=== PATIENT | female | born 1960 | race Caucasian/White ===

== ENCOUNTER 2018-05-31 15:17 | Outpatient (CLI) | payer OTHER | END 2018-05-31 15:18 | disposition home or self-care (01) | LOC: SC 15:17 | PROVIDERS: ATTEND Internal Medicine Pulmonary Disease | DX: G47.30 Sleep apnea, unspecified (principal); G47.10 Hypersomnia, unspecified; R06.83 Snoring; G47.8 Other sleep disorders | CPT/HCPCS: 99203; 99212 ==

== ENCOUNTER 2018-06-20 16:00 | Outpatient (CLI) | payer OTHER ==
--- NOTE | 2018-06-21 09:52 | Mammography Report ---
Procedure Date: 06/20/2018 Accession Number: [id number] / [id number] Procedure: MGN - Screening Mammo Dig Bilat CPT Code: FULL RESULT: EXAM: Screening Mammo Dig Bilat DATE: 06/20/2018 4:18 PM CLINICAL HISTORY: Late childbearing for routine screening TECHNIQUE: Bilateral CC and MLO views were obtained. COMPARISON: 10/10/2015, 06/03/2012, 06/11/2009 FINDINGS: There are scattered fibroglandular densities. There has been no significant interval change. No suspicious masses, clustered microcalcifications, or regions of architectural distortion are identified. IMPRESSION: Negative examination RECOMMENDATION: Routine annual screening unless otherwise clinically indicated. BIRADS CATEGORY 1: Negative STANDARD QUALIFYING STATEMENTS: 1. This examination was reviewed with the aid of Computer-Aided Detection (CAD). 2. A negative or benign imaging report should not delay biopsy if clinically suspicious findings are present. Consider surgical consultation if warrented. More than 5% of cancers are not identified by imaging. 3. Dense breasts may obscure an underlying neoplasm.
== END 2018-06-20 16:01 | disposition home or self-care (01) ==
LOC: DI.N 16:00
PROVIDERS: ATTEND Physician Assistant
DX: Z12.31 Encounter for screening mammogram for malignant neoplasm of breast (principal)
CPT/HCPCS: 77067

== ENCOUNTER 2018-07-06 20:22 | Outpatient (CLI) | payer OTHER | END 2018-07-06 20:23 | disposition home or self-care (01) | LOC: SC 20:22 | PROVIDERS: ATTEND Internal Medicine Pulmonary Disease | DX: G47.33 Obstructive sleep apnea (adult) (pediatric) (principal); G47.61 Periodic limb movement disorder | CPT/HCPCS: 95811 ==

== ENCOUNTER 2018-07-11 14:50 | Outpatient (CLI) | payer OTHER | END 2018-07-11 14:51 | disposition home or self-care (01) | LOC: SC 14:50 | PROVIDERS: ATTEND Internal Medicine Pulmonary Disease | DX: G47.33 Obstructive sleep apnea (adult) (pediatric) (principal) | CPT/HCPCS: 99212; 99213 ==

== ENCOUNTER 2018-09-08 13:15 | Outpatient (CLI) | payer OTHER | END 2018-09-08 13:16 | disposition home or self-care (01) | LOC: SC 13:15 | PROVIDERS: ATTEND Nurse Practitioner Family | DX: G47.33 Obstructive sleep apnea (adult) (pediatric) (principal) | CPT/HCPCS: 99212; 99215 ==

== ENCOUNTER 2018-10-12 13:38 | Outpatient (CLI) | payer OTHER | END 2018-10-12 13:39 | disposition home or self-care (01) | LOC: SC 13:38 | PROVIDERS: ATTEND Nurse Practitioner Family | DX: G47.33 Obstructive sleep apnea (adult) (pediatric) (principal) | CPT/HCPCS: 99212; 99214 ==

== ENCOUNTER 2018-11-17 13:38 | Outpatient (CLI) | payer OTHER | END 2018-11-17 13:39 | disposition home or self-care (01) | LOC: SC 13:38 | PROVIDERS: ATTEND Nurse Practitioner Family | DX: G47.33 Obstructive sleep apnea (adult) (pediatric) (principal) | CPT/HCPCS: 99212; 99214 ==

== ENCOUNTER 2018-11-21 13:47 | Outpatient (CLI) | payer OTHER ==
[2018-11-21] MEDS ORDERED: IOVERSOL 320 50 ML VIAL ONE (13:53)
[2018-11-21] MEDS ORDERED: IOVERSOL 320 100 ML VIAL IVP ONE ×2 (13:53→15:22)
[2018-11-21] MEDS ORDERED: IOVERSOL 320 50 ML VIAL PO ONE (15:22)
--- NOTE | 2018-11-21 16:52 | CT Report ---
Reason: OTHER CHEST PAIN,ABDOMINAL DISTENSION Procedure Date: 11/21/2018 Accession Number: [id number] / [id number] Procedure: CT - Abdomen/Pelvis W/ CPT Code: FULL RESULT: EXAM: CT ABDOMEN AND PELVIS EXAM DATE: 11/21/2018 03:17 PM. CLINICAL HISTORY: OTHER CHEST PAIN,ABDOMINAL DISTENSION. COMPARISONS: None. TECHNIQUE: Routine helical CT imaging was performed through the abdomen and pelvis. IV contrast: 100 mL Optiray 320. Enteric contrast: Yes. Reconstructions: Coronal and sagittal. In accordance with CT protocol optimization, one or more of the following dose reduction techniques were utilized for this exam: automated exposure control, adjustment of mA and/or KV based on patient size, or use of iterative reconstructive technique. FINDINGS: Lung Bases: Unremarkable. Liver: Normal. No masses. Gallbladder/Bile Ducts: Unremarkable. Spleen: Normal. Pancreas: Normal. Adrenal Glands: Normal. Kidneys: Normal. No masses or hydronephrosis. Peritoneal Cavity/Bowel: Small hiatal hernia. Postsurgical changes at the GE junction. The appendix is well visualized and normal. Pelvic Organs: Normal. The bladder and visualized pelvic organs are within normal limits. Vasculature: No aneurysms or other significant abnormality. Bones: No significant abnormality. Other: None. IMPRESSION: 1. Prior Eder fundoplication with small hiatal hernia and the fundoplication above the diaphragm. 2. Otherwise, no bowel obstruction or inflammatory process associated with the bowel. No free air or fluid in the abdomen or pelvis. 3. The appendix images normally. RADIA
--- NOTE | 2018-11-22 11:58 | CT Report ---
Reason: OTHER CHEST PAIN,ABDOMINAL DISTENSION Procedure Date: 11/21/2018 Accession Number: [id number] / [id number] Procedure: CT - Chest W/ CPT Code: FULL RESULT: EXAM: CT CHEST EXAM DATE: 11/21/2018 03:17 PM. CLINICAL HISTORY: Other chest pain, abdominal distension. COMPARISONS: None. TECHNIQUE: Routine helical CT imaging was performed through the chest. IV contrast: 100 mL Optiray 320. Reconstructions: Coronal and sagittal. In accordance with CT protocol optimization, one or more of the following dose reduction techniques were utilized for this exam: automated exposure control, adjustment of mA and/or KV based on patient size, or use of iterative reconstructive technique. FINDINGS: Lungs/Pleura: Minimal dependent changes predominantly on the left. No suspicious nodules, bronchial thickening, consolidation, or edema. Pulmonary vasculature is normal. No pericardial or pleural effusion. No pneumothorax. Mediastinum: Normal. No adenopathy or masses. The heart and great vessels are normal. Bones: No aggressive osseous lesions. Visualized Abdomen: See CT abdomen pelvis. Other: The Eder fundoplication within the thorax contains oral contrast and there is a sliding hiatal hernia, no longer effective. IMPRESSION: Hiatal hernia with failed fundoplication repair. RADIA
== END 2018-11-21 13:48 | disposition home or self-care (01) ==
LOC: DI 13:47
PROVIDERS: ATTEND Physician Assistant
DX: K44.9 Diaphragmatic hernia without obstruction or gangrene (principal); Z98.84 Bariatric surgery status
CPT/HCPCS: 71260; 74177; Q9967

== ENCOUNTER 2019-01-11 13:03 | Outpatient (CLI) | payer OTHER ==
--- NOTE | 2019-01-19 14:08 | XRAY Report ---
Reason: DYSPHAGIA, UNSPECIFIED Procedure Date: 01/11/2019 Accession Number: [id number] / [id number] Procedure: FL - Modified Barium Swallow W/SP CPT Code: FULL RESULT: EXAM: MODIFIED BARIUM SWALLOW EXAM DATE: 01/11/2019 01:39 PM. CLINICAL HISTORY: Dysphagia, unspecified. COMPARISON: None. TECHNIQUE: Under the direction of speech pathology, patient swallowed various consistencies of barium under lateral fluoroscopic observation of the neck. Fluoroscopy Time: 1 minute 16 seconds. Number of Images: 60. FINDINGS: Swallowing Mechanism: Normal oral phase and swallowing reflex. Airway Protection: Normal epiglottic motion. No episodes of tracheal penetration or aspiration with all consistencies of barium. Pharynx: Normal. No significant vallecular or piriform sinus contrast pooling. Other: None. IMPRESSION: Normal modified barium swallow. No aspiration identified. RADIA
== END 2019-01-11 13:04 | disposition home or self-care (01) ==
LOC: DI 13:03
PROVIDERS: ATTEND Surgery
DX: R13.10 Dysphagia, unspecified (principal)
CPT/HCPCS: 74230

== ENCOUNTER 2019-02-15 13:34 | Outpatient (CLI) | payer OTHER | END 2019-02-15 13:35 | disposition home or self-care (01) | LOC: SC 13:34 | PROVIDERS: ATTEND Nurse Practitioner Family | DX: G47.33 Obstructive sleep apnea (adult) (pediatric) (principal); R60.0 Localized edema | CPT/HCPCS: 99212; 99215 ==

== ENCOUNTER 2019-10-05 11:07 | Outpatient (CLI) | payer OTHER ==
[2019-10-05 12:29] VITALS: BP 118/78
--- NOTE | 2019-10-05 12:29 | SLEEP CARE CONSULTATION ---
Information from patient questionnaire entered by Rosie Allred. I have reviewed and concur with the information entered by Rosie Allred. This document represents the service I personally performed and the decisions made by me, Narcisa Camarena, RN, MSN, INSTRUMENT STERILIZER. History of Present Illness Previous diagnosis: Very Severe, Obstructive Sleep Apnea-Hypopnea Syndrome AHI: 98.2 Reason for follow up: six month Equipment type: BiPAP Equipment obtained from: [employer] Mask style: Nasal pillows Mask brand: Respironics (wears headgear upside down and stays in place better) Backup mask available: Yes Last cushion change: 2 weeks Prior sleep studies: Yes HPI additional information: Since last seen her extremity edema resolved with 20 pound weight loss. The bloating is also better and only intermittent and seen by GI for future surgical repair of failed fundo plication. CPAP Compliance Data - Data Reviewed with Patient Average duration of nightly device use: 5h 51m Compliance rate %: 79 Current pressure setting (cmH2O): 14/10 Average residual AHI: 5.9 Central apnea: 1.7 Obstructive apnea: 3.7 Hypopnea: 0.3 Subjective Patient concerns: reports: aerophagia (bloating in morning less since weight loss with resolution from flatus a couple hours later / denies chest pressure and burping ), other (waking with mask off of face the last 2 months with recent change / also able to sleep on back with weight loss). denies: mask discomfort, air blowing in eyes, mask leak noise, condensation in mask/hose, nasal congestion, dry mouth, nose, throat, epistaxis Observed to snore while using device: No (noted by family during travel ) Current pressure setting perceived as: comfortable On therapy, patient: reports: sleeping better (but recently waking more in night the past 2 months with weight loss), awakening more refreshed, being more awake and alert during the day, more rested overall. denies: drowsiness while driving Initial [place] Sleepiness Scale score: 8 Current [place] Sleepiness Scale score: 4 Allergies and Home Medications Known drug allergies: Yes (Bees and latex) Home medication list reviewed: Yes Allergy and home medication list: Medication Name (generic/name brand) Strength & Dosage Fswwmqsakv-Dlgjmelacvtfy-Ypqgdfpx 50-300-40mg two every 4hr prn migraine Estradiol 1mg tab one daily Fluoxetine HCI 20mg tab one daily Valacyclovir 500mg tab one daily prn Multivitamin Tab one daily Review of Systems Review of systems same as previous: Yes Physical Exam Blood Pressure: 118/78 Cuff size: long Heart Rate: 67 O2 Saturation: 98 Height: 5 ft 5.75 in Weight: 210 lb 12.8 oz (started weight watchers and goal of losing to 150 pounds ) Weight change since last visit: lost 37 pounds Body Mass Index: 34.2 BMI Classification: Obesity Class 1 Impression and Plan 1. Obstructive Sleep Apnea-Hypopnea Syndrome, extremely severe, with good treatment compliance and slightly elevated residual AHI that is similar to past visit. However, now she can sleep supine with her BiPAP due to resolution of s houlder and side pain and numbness with weight loss. On BiPAP therapy, the patient has better sleep quality and is more rested overall. Her headaches and nightmares have resolved. However, she is waking more frequently since weight loss and finding mask off of face. Thus we discussed how her weight loss can reduce her apnea risk as well as her CPAP pressure requirements with rationale discussed. So I will reduce her BiPAP pressure to 12/8cmH20 and patient to contact me if the pressure uncomfortable or if she continues to pull mask off. Hopefully this pressure reduction will also reduce her abdominal bloating .Other symptoms to report for further pressure reduction discussed as well as patient plans on losing 50 more pounds. She was praised for her accomplishment. Patient pleased with how much better she is feeling overall with weight loss. Patient's apnea severity and rationale for treatment to reduce apnea, improve sleep quality and reduce cardiovascular and cerebrovascular events was reviewed. I also reviewed the benefit of consistent device use of BiPAP for migraines. * * Change BiPAP pressure to 12/8 cmH2O * Notify me if snoring with mask or feeling that the pressure is too much or too little * Continue to lose weight * Return for follow up in 6 months , or sooner if concerns arise I spent 100% of this [20][30] minute visit face to face with the patient with greater than 50% of this was spent time counseling the patient and coordination of care.
== END 2019-10-05 11:08 | disposition home or self-care (01) ==
LOC: SC 11:07
PROVIDERS: ATTEND Nurse Practitioner Family
DX: G47.33 Obstructive sleep apnea (adult) (pediatric) (principal); E66.9 Obesity, unspecified; Z68.34 Body mass index [BMI] 34.0-34.9, adult
CPT/HCPCS: 99212; 99214

== ENCOUNTER 2021-04-11 08:08 | Outpatient (CLI) | payer BC ==
--- NOTE | 2021-04-14 11:45 | Mammography Report ---
BILATERAL DIGITAL SCREENING MAMMOGRAM 3D/2D: 04/11/2021 CLINICAL: Routine screening. Comparison is made to exams dated: 06/20/2018 mammogram, 10/10/2015 mammogram, and 06/03/2012 mammogram - [facility]. The tissue of both breasts is predominantly fatty. No significant masses, calcifications, or other findings are seen in either breast. There has been no significant interval change. IMPRESSION: NEGATIVE There is no mammographic evidence of malignancy. A 1 year screening mammogram is recommended. This exam was interpreted at Station ID: [id number]. NOTE: For mammograms, a report in lay terms will be sent to the patient. Approximately 15% of breast malignancies will not be visualized mammographically. In the management of a palpable breast mass, a negative mammogram must not discourage biopsy of a clinically suspicious lesion. Electronically Signed By: Russ Mariscal M.D. aty/penrad:04/11/2021 10:30:41 ACR BI-RADS Category 1: Negative 3341F PARENCHYMAL PATTERN: (F) - The breast(s) demonstrate(s) diffuse fatty replacement. BI-RADS CATEGORY: (1) - 1 RECOMMENDATION: (ANNUAL) - Recommend routine annual screening mammography. [id number] 1 year screening LATERALITY: (B)
== END 2021-04-11 08:09 | disposition home or self-care (01) ==
LOC: DI 08:08
DX: Z12.31 Encounter for screening mammogram for malignant neoplasm of breast (principal)

== ENCOUNTER 2022-05-12 14:57 | Outpatient (CLI) | payer BC ==
--- NOTE | 2022-05-14 12:29 | Mammography Report ---
BILATERAL DIGITAL SCREENING MAMMOGRAM 3D/2D: 05/12/2022 CLINICAL: Family history of breast cancer. Routine screening. No prior exams were available for comparison. The tissue of both breasts is predominantly fatty. There is a stable benign focal asymmetry in the left breast. No significant masses, calcifications, or other findings are seen in either breast. IMPRESSION: BENIGN There is no mammographic evidence of malignancy. A 1 year screening mammogram is recommended. Based on the Tyrer Cuzick model (a risk assessment model) the patients lifetime risk is 10.5% and he r 10 year risk is 4.6%. According to the ACR, ACS, and NCCN guidelines, an annual breast MRI exam nilson ng with mammogram is recommended if the patients lifetime risk is 20% or greater. This exam was interpreted at Station ID: [id number]. NOTE: For mammograms, a report in lay terms will be sent to the patient. Approximately 15% of breast malignancies will not be visualized mammographically. In the management of a palpable breast mass, a negative mammogram must not discourage biopsy of a clinically suspicious lesion. Electronically Signed By: John Weems acr/penrad:05/13/2022 14:05:00 ACR BI-RADS Category 2: Benign Finding(s) 3342F PARENCHYMAL PATTERN: (F) - The breast(s) demonstrate(s) diffuse fatty replacement. BI-RADS CATEGORY: (2) - 2 RECOMMENDATION: (ANNUAL) - Recommend routine annual screening mammography. [id number] 1 year screening LATERALITY: (B)
== END 2022-05-12 14:58 | disposition home or self-care (01) ==
LOC: DI.S 14:57
PROVIDERS: ATTEND Registered Nurse
DX: Z12.31 Encounter for screening mammogram for malignant neoplasm of breast (principal); Z80.3 Family history of malignant neoplasm of breast

== ENCOUNTER 2022-05-12 14:59 | Outpatient (CLI) | payer BC ==
--- NOTE | 2022-05-12 15:59 | XRAY Report ---
PROCEDURE: Knee 3 View RT INDICATIONS: RIGHT KNEE PAIN TECHNIQUE: 3 views of the right knee(s) were acquired. COMPARISON: None. FINDINGS: Bones: Mild degenerative changes with small forming osteophytes of the medial and lateral compartmen t. No joint space narrowing. No fractures or dislocations. No suspicious bony lesions. Soft tissues: No joint effusion. No suspicious soft tissue calcifications. Vasculature has atheros clerotic calcifications. IMPRESSION: Mild degenerative changes. No acute abnormality. Reviewed by: John Weems on 05/12/2022 3:57 PM PDT Approved by: John Weems on 05/12/2022 3:57 PM PDT Station ID: [id number]
== END 2022-05-12 15:00 | disposition home or self-care (01) ==
LOC: DI.S 14:59
PROVIDERS: ATTEND Registered Nurse
DX: M17.11 Unilateral primary osteoarthritis, right knee (principal)

== ENCOUNTER 2024-02-03 16:11 | Outpatient (CLI) | payer OTHER ==
--- NOTE | 2024-02-03 21:46 | XRAY Report ---
PROCEDURE: Chest 2V INDICATIONS: COUGH TECHNIQUE: 2 views of the chest were acquired. COMPARISON: CT chest 11/21/2018 FINDINGS: Surgical changes and devices: Surgical clips seen in the left upper quadrant of the abdomen. Lungs and pleura: No pleural effusions or pneumothorax. Lungs are clear. Mediastinum: Mediastinal contours appear normal. Heart size is normal. Small hiatal hernia. Bones and chest wall: No suspicious bony lesions. Overlying soft tissues appear unremarkable. IMPRESSION: Redemonstrated small hiatal hernia. Considerable gastroesophageal reflux as source of cough. Reviewed by: Enriqueta Shaw MD on 02/03/2024 9:44 PM PDT Approved by: Enriqueta Shaw MD on 02/03/2024 9:44 PM PDT Station ID: [id number]
== END 2024-02-03 16:12 | disposition home or self-care (01) ==
LOC: DI 16:11
PROVIDERS: ATTEND Nurse Practitioner Family
DX: K21.9 Gastro-esophageal reflux disease without esophagitis (principal); K44.9 Diaphragmatic hernia without obstruction or gangrene

== ENCOUNTER 2024-05-05 07:00 | Outpatient (CLI) | payer OTHER ==
--- NOTE | 2024-05-07 15:47 | XRAY Report ---
PROCEDURE: Knee 2V LT INDICATIONS: LEFT KNEE PAIN TECHNIQUE: 2 views of the knee(s) were acquired. COMPARISON: Right knee radiograph on May 12, 2022. FINDINGS: Bones: No fractures or dislocations. Mild tricompartmental joint space narrowing and juxta-articular osteophytosis, worse in the medial compartment. Query chondrocalcinosis in the medial compartment. N o suspicious bony lesions. Soft tissues: Small knee joint effusion. No suspicious soft tissue calcifications or masses. IMPRESSION: 1.No acute bony abnormality. 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 3.Query chondrocalcinosis in the medial compartment. Reviewed by: Miah Ward MD on 05/07/2024 3:45 PM PDT Approved by: Miah Ward MD on 05/07/2024 3:45 PM PDT Station ID: [id number]
== END 2024-05-05 23:59 | disposition home or self-care (01) ==
LOC: DI.S 07:00
PROVIDERS: ATTEND Emergency Medicine
DX: M17.12 Unilateral primary osteoarthritis, left knee (principal)